=== PATIENT | male | born 1970 | race Caucasian/White ===

== ENCOUNTER 2016-12-20 09:55 | Emergency (ER) | payer OTHER ==
[~2016-12-20] VITALS: Ht 182.8 cm; Wt 83.9 kg
[~2016-12-20 09:55] MED LIST: AUGMENTIN 875875 MG PO; HYDROCODONE BIT1 T11 PO
[2016-12-20] MEDS ORDERED: NAPROSYN500 MG PO (10:13)
== END 2016-12-20 11:36 | disposition home or self-care (01) ==
LOC: ED 09:55
DX: M25.462 Effusion, left knee (principal); R03.0 Elevated blood-pressure reading, without diagnosis of hypertension

== ENCOUNTER → 2016-12-26 | Outpatient (CLI) | payer OTHER ==
[~2016-12-26] MED LIST changes: +NAPROSYN500 MG PO
[2016-12-26 13:52] LABS: BF LYMPHOCYTES 48 %; BF MACROPHAGES 11 %; BF MONOCYTES 9 %; BF NEUTROPHILS 27 %; BF SYNOVIAL CELLS 3 %
[2016-12-26 13:54] LABS: BODY FLUID RBC 1805000 /uL; BODY FLUID TYPE SYNOVIAL; BODY FLUID WBC 1125 /uL
[2016-12-27 13:06] LABS: ACID FAST SPEC PROCESSING Concentration (.)
== END | disposition home or self-care (01) ==
LOC: LAB 12:14
PROVIDERS: Physician Assistant
DX: M25.572 Pain in left ankle and joints of left foot (principal); M25.472 Effusion, left ankle

== ENCOUNTER → 2016-12-28 | Outpatient (CLI) | payer OTHER | END | disposition home or self-care (01) | LOC: MRI 08:00 | DX: M17.12 Unilateral primary osteoarthritis, left knee (principal); M25.462 Effusion, left knee; Z87.39 Personal history of other diseases of the musculoskeletal system and connective tissue ==

== ENCOUNTER 2020-09-09 08:17 | Emergency (ER) | payer OTHER ==
[~2020-09-09] VITALS: Ht 182.8 cm; Wt 83.9 kg
[2020-09-09] MEDS ORDERED: CEPHALEXIN500 M1 PO (10:48)
== END 2020-09-09 12:52 | disposition home or self-care (01) ==
LOC: ED 08:17
DX: L02.611 Cutaneous abscess of right foot (principal); M79.5 Residual foreign body in soft tissue; F17.200 Nicotine dependence, unspecified, uncomplicated; Z79.899 Other long term (current) drug therapy

== ENCOUNTER → 2020-10-07 | Outpatient (CLI) | payer OTHER ==
[~2020-10-07] MED LIST changes: +CEPHALEXIN500 M1 PO
== END | disposition home or self-care (01) ==
LOC: LAB 08:00
PROVIDERS: ATTEND Internal Medicine Critical Care Medicine
DX: R53.83 Other fatigue (principal)

== ENCOUNTER 2021-10-16 22:17 | Emergency (ER) | payer OTHER ==
[2021-10-17] MEDS ORDERED: NAPROSYN500 MG PO (00:42)
== END 2021-10-17 01:01 | disposition home or self-care (01) ==
LOC: ED 22:17
DX: S63.502A Unspecified sprain of left wrist, initial encounter (principal); S53.402A Unspecified sprain of left elbow, initial encounter; V86.99XA Unspecified occupant of other special all-terrain or other off-road motor vehicle injured in nontraffic accident, initial encounter; Y93.89 Activity, other specified; Y92.89 Other specified places as the place of occurrence of the external cause; Y99.8 Other external cause status

== ENCOUNTER → 2022-11-11 | Outpatient (CLI) | payer OTHER ==
[2022-11-11 10:00] LABS: BASO # 0.1 10*3/uL (0.0-0.1); BASO % 1.1 % (0.0-1.0); EOS # 0.3 10*3/uL (0.0-0.4); HEMATOCRIT 46.7 % (42.0-52.0); LYMPH # 1.7 10*3/uL (1.3-4.4); LYMPH % 29.5 % (27.0-41.0); MEAN CELL VOLUME 90.9 fl (80.0-94.0); MEAN CORPUSCULAR HGB 31.1 pg (27.0-31.0); MEAN CORPUSCULAR HGB CONC 34.3 g/dl (33.0-37.0); MEAN PLATELET VOLUME 9.9 fl (9.6-12.3); MONO # 0.6 10*3/uL (0.1-1.0); MONO % 10.4 % (3.0-9.0); NEUT % 52.8 % (47.0-73.0); PLATELET COUNT AUTOMATED 218 10*3/uL (130-400); RED BLOOD COUNT 5.14 10*6/uL (4.50-5.90); RED CELL DISTRI WIDTH 11.9 % (0-14.5); WHITE BLOOD COUNT 5.7 10*3/uL (4.8-10.8)
[2022-11-11 10:28] LABS: ALKALINE PHOSPHATASE 73 U/L (46-116); BUN 12 mg/dl (9-23); CHLORIDE 110 mmol/L (98-107); CHOLESTEROL 166 mg/dL (<200); FREE T4 0.88 ng/dl (0.89-1.76); LDL CHOLESTEROL 109 mg/dL (9-159); POTASSIUM 4.2 mmol/L (3.4-5.1); SGPT/ALT 17 U/L (10-49); TOTAL PROTEIN 6.9 gm/dL (6.0-8.0); TRIGLYCERIDES 53 mg/dl (<150)
[2022-11-11 10:40] LABS: VITAMIN D, 25-HYDROXY 31.7 ng/mL (30-100)
== END | disposition home or self-care (01) ==
LOC: LAB 09:47
PROVIDERS: ATTEND Internal Medicine
DX: Z13.0 Encounter for screening for diseases of the blood and blood-forming organs and certain disorders involving the immune mechanism (principal); Z13.1 Encounter for screening for diabetes mellitus; Z13.21 Encounter for screening for nutritional disorder; Z13.220 Encounter for screening for lipoid disorders; Z13.228 Encounter for screening for other metabolic disorders; Z13.29 Encounter for screening for other suspected endocrine disorder; Z13.6 Encounter for screening for cardiovascular disorders; Z13.89 Encounter for screening for other disorder; Z13.9 Encounter for screening, unspecified

== ENCOUNTER → 2024-09-25 | Outpatient (CLI) | payer OTHER | END | disposition home or self-care (01) | LOC: CT 13:35 | PROVIDERS: ATTEND Internal Medicine | DX: J32.2 Chronic ethmoidal sinusitis (principal); F07.81 Postconcussional syndrome ==